=== PATIENT | male | born 1950 | race Asian ===

== ENCOUNTER 2025-01-28 11:29 | Emergency (ER) | payer BC, MEDICAID ==
[~2025-01-28] VITALS: Ht 165.1 cm; Wt 68.9 kg
[2025-01-28] MEDS ORDERED: CAPS42.513 TP (12:52)
[2025-01-28] MEDS ORDERED: METH4TAB3 PO (12:52)
[2025-01-28] MEDS: KETOROLAC TROMETHAMINE INJ 30 MG/ML VIAL IM ONE (13:00)
[2025-01-28] MEDS ORDERED: KETOROLAC TROMETHAMINE INJ 30 MG/ML VIAL ONE (13:10)
[2025-01-28 13:18] VITALS: BP 132/86; TEMP 98.2; O2SAT 98
== END 2025-01-28 13:19 | disposition home or self-care (01) ==
LOC: ER 11:32
DX: M54.50 Low back pain, unspecified (principal); I11.9 Hypertensive heart disease without heart failure; M10.00 Idiopathic gout, unspecified site; E78.00 Pure hypercholesterolemia, unspecified
CPT/HCPCS: 99285; 72131; 96372; J1885